=== PATIENT | female | born 1930 | race Caucasian/White ===

== ENCOUNTER → 2017-01-10 | Outpatient (CLI) | payer MEDICARE, BC | LOC: MW.CHFP 08:00 | PROVIDERS: ATTEND Physician Assistant | DX: M17.12 Unilateral primary osteoarthritis, left knee (principal); F41.9 Anxiety disorder, unspecified | CPT/HCPCS: G0463 ==

== ENCOUNTER → 2017-01-13 | Outpatient (CLI) | payer MEDICARE, BC | LOC: MW.CHORTHO 08:00 | PROVIDERS: ATTEND Orthopaedic Surgery | DX: M17.12 Unilateral primary osteoarthritis, left knee (principal) | CPT/HCPCS: 20610; G0463; J1040 ==

== ENCOUNTER → 2017-01-27 | Outpatient (CLI) | payer MEDICARE, BC | LOC: MW.CHFP 08:00 | PROVIDERS: ATTEND Student in an Organized Health Care Education/Training Program | DX: Z51.81 Encounter for therapeutic drug level monitoring (principal); Z79.01 Long term (current) use of anticoagulants; I48.91 Unspecified atrial fibrillation | CPT/HCPCS: 85610; 99211 ==

== ENCOUNTER → 2017-01-28 | Outpatient (CLI) | payer MEDICARE, BC ==
--- NOTE | 2017-01-28 17:04 | CR ---
EXAMINATION: Thoracic spine HISTORY: Pain COMPARISON: None TECHNIQUE: AP and lateral views FINDINGS: There is mild dextrocurvature of the thoracic spine. There are a few mild wedge deformitie s near the thoracolumbar junction. The remaining Vertebral body heights appear grossly maintained. T here is generalized osteopenia. Aortic calcifications are noted. There is a moderate hiatal hernia. IMPRESSION: 1. Osteopenia and mild to moderate exit curvature of the thoracic spine. 2. Mild wedge deformities within the thoracolumbar region.
== END ==
LOC: MW.CHFP 15:56
PROVIDERS: ATTEND Physician Assistant
DX: M54.6 Pain in thoracic spine (principal); R53.83 Other fatigue; M85.88 Other specified disorders of bone density and structure, other site; M43.8X5 Other specified deforming dorsopathies, thoracolumbar region
CPT/HCPCS: 72070; 72070-26; 81001; 87086; G0463

== ENCOUNTER → 2017-02-24 | Outpatient (CLI) | payer MEDICARE, BC | LOC: MW.CHORTHO 08:00 | PROVIDERS: ATTEND Orthopaedic Surgery | DX: M17.12 Unilateral primary osteoarthritis, left knee (principal); Z51.81 Encounter for therapeutic drug level monitoring; Z79.01 Long term (current) use of anticoagulants; I48.91 Unspecified atrial fibrillation | CPT/HCPCS: 20610; 85610; 99211; G0463; J7326 ==

== ENCOUNTER 2018-01-09 21:41 | Emergency (ER) | payer MEDICARE, BC ==
[2018-01-09] MEDS ORDERED: Bacitracin Oint 1 GM U/D Packet TOP ONE (22:08)
--- NOTE | 2018-01-09 22:13 | EDM.PDOC ---
ED HPI GENERAL MEDICAL PROBLEM - General Chief Complaint: Skin Complaint Stated Complaint: PT HURT RT ARM Time Seen by Provider: 01/09/18 22:01 - History of Present Illness INITIAL COMMENTS - FREE TEXT/NARRATIVE: HISTORY AND PHYSICAL: History of present illness: The patient is a 87-year-old female who has a history of atrial fibrillation and is on Coumadin which she gets checked on a regular basis with Dr. Almanzar and presents after scraping her right forearm on a shelf earlier this evening. The patient did not fall to the ground or have a direct blow but says that every time she even has a minor injury because of the Coumadin she bruises easily. The patient had a normal day and has no systemic complaints of fever chills cough chest pain palpitations abdominal pain vomiting or diarrhea. The patient has been doing her normal activity and in fact spent the day with her at [facility]. Patient says she is up-to-date on her tetanus shot and thinks it was 3 years ago and is here for wound care and evaluation. She says that it did not bleed very much from the wound but because of the size that she was concerned. The patient has no bony pain in her forearm and distally has no neurosensory changes or weakness in her hand or arm. The patient currently denies any head neck back chest or other extremity pain. The patient says she did not fall to the ground or hit her head. Review of systems: As per history of present illness and below otherwise all systems reviewed and negative. Past medical history: As per history of present illness and as reviewed below otherwise noncontributory. Surgical history: As per history of present illness and as reviewed below otherwise noncontributory. Social history: No reported history of drug or alcohol abuse. Family history: As per history of present illness and as reviewed below otherwise noncontributory. Physical exam: General: Well-developed thin female who is nontoxic and moves easily in the ED and is in no distress. Vital signs are noted by me HEENT: Atraumatic, normocephalic, pupils reactive, negative for conjunctival pallor or scleral icterus, mucous membranes moist, throat clear, neck supple, nontender, trachea midline. Lungs: Clear to auscultation, breath sounds equal bilaterally, chest nontender. Heart: S1S2, regular rate but irregular rhythm consistent with her atrial fibrillation, there is a systolic ejection murmur heard at the left sternal border Abdomen: Soft, nondistended, nontender. Rotund abdomen, normoactive bowel sounds Pelvis: Stable nontender. Genitourinary: Deferred. Rectal: Deferred. Extremities: Atraumatic with full range of motion of all extremities with the exception of the dorsal aspect of the right forearm where there is a large arrow shaped skin tear measuring approximately 12 x 3 cm and soft tissue ecchymosis in the surround. The compartment is soft and there is no bony tenderness in the forearm elbow or distally in the wrist or hand. There is several superficial scratches with some ecchymosis seen on the dorsal aspect of the hand which are not bleeding. There is no active bleeding from any of these wounds. The legs are, negative for cords or calf pain. Neurovascular unremarkable. Neuro: Awake, alert, oriented. Cranial nerves II through XII unremarkable. Cerebellum unremarkable. Motor and sensory unremarkable throughout. Exam nonfocal. Diagnostics: [] Therapeutics: Irrigation of wound and gentle reapproximation of skin tear, bacitracin and nonstick dressing I discussed with the patient that the wound did not need to be sutured and as it is a flap-like skin tear we would irrigate and then just try to gently slide the superficial skin in a more anatomically correct location but we would not be lifting a flap as this may cause more bleeding. The patient is comfortable with the care plan. The patient tells me that she has a lab draw scheduled for the end of January for her INR and does not request that I check it today. She has no evidence of any active bleeding I will also defer this at this time. Impression: Large skin tear to right forearm stable, history of A. fib and Coumadin use stable Definitive disposition and diagnosis as appropriate pending reevaluation and review of above. 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 ED EXAM, SKIN/RASH Exam: See Below (See dictation) Course - Vital Signs Last Recorded V/S: Last Vital Signs Temp 36.2 C 01/09/18 21:41 Pulse 95 01/09/18 21:41 Resp 18 01/09/18 21:41 BP 146/98 H 01/09/18 21:41 Pulse Ox 93 L 01/09/18 21:41 - Orders/Labs/Meds Orders: Active Orders 24 hr Category Date Time Status Communication Order [RC] STAT Care 01/09/18 22:07 Ordered Bacitracin [Bacitracin Oint 1 GM] Med 01/09/18 22:08 Once 1 dose TOP ONETIME ONE Departure - Departure Time of Disposition: 22:12 Disposition: Home, Self-Care 01 Condition: Good Clinical Impression: Skin tear of forearm without complication Qualifiers: Encounter type: initial encounter Laterality: right Qualified Code(s): S51.811A - Laceration without foreign body of right forearm, initial encounter - Discharge Information Referrals: PCP,None [Primary Care Provider] - Additional Instructions: The following information is given to patients seen in the emergency department who are being discharged to home. This information is to outline your options for follow-up care. We provide all patients seen in our emergency department with a follow-up referral. The need for follow-up, as well as the timing and circumstances, are variable depending upon the specifics of your emergency department visit. If you don't have a primary care physician on staff, we will provide you with a referral. We always advise you to contact your personal physician following an emergency department visit to inform them of the circumstance of the visit and for follow-up with them and/or the need for any referrals to a consulting specialist. The emergency department will also refer you to a specialist when appropriate. This referral assures that you have the opportunity for followup care with a specialist. All of these measure are taken in an effort to provide you with optimal care, which includes your followup. Under all circumstances we always encourage you to contact your private physician who remains a resource for coordinating your care. When calling for followup care, please make the office aware that this follow-up is from your recent emergency room visit. If for any reason you are refused follow-up, please contact the [facility] emergency department at and ask to speak to the emergency department charge nurse. [facility] Primary care- [place] [address] Please keep the wound clean and dry using mild soap and water patting dry and applying bacitracin or Neosporin. If you need to cover the area please do not use a Band-Aid as this will trap moisture and break the skin down further. Use only a nonstick dressing. Please follow-up with your provider in the clinic in the next few days for reevaluation and further care and return to ER as needed and as discussed - My Orders Last 24 Hours: My Active Orders 01/09/18 22:07 Communication Order [RC] STAT 01/09/18 22:08 Bacitracin [Bacitracin Oint 1 GM] 1 dose TOP ONETIME ONE - Assessment/Plan Last 24 Hours: My Active Orders 01/09/18 22:07 Communication Order [RC] STAT 01/09/18 22:08 Bacitracin [Bacitracin Oint 1 GM] 1 dose TOP ONETIME ONE
[2018-01-09 22:40] VITALS: BP 156/92
== END 2018-01-09 22:33 | disposition home or self-care (01) ==
LOC: MW.ED 21:41
DX: S51.811A Laceration without foreign body of right forearm, initial encounter (principal); S60.511A Abrasion of right hand, initial encounter; I48.91 Unspecified atrial fibrillation; I10 Essential (primary) hypertension; Z79.01 Long term (current) use of anticoagulants; Z79.899 Other long term (current) drug therapy; W18.40XA Slipping, tripping and stumbling without falling, unspecified, initial encounter
CPT/HCPCS: 99282; 99283

== ENCOUNTER 2018-02-15 09:58 | Emergency (ER) | payer MEDICARE, BC ==
[2018-02-15 10:08] VITALS: BP 134/42
--- NOTE | 2018-02-15 10:20 | EDM.PDOC ---
ED HPI GENERAL MEDICAL PROBLEM - General Chief Complaint: General Stated Complaint: PT FELL OUT OF BED Time Seen by Provider: 02/15/18 10:19 Source of Information: Reports: Patient, Family History Limitations: Reports: No Limitations - History of Present Illness INITIAL COMMENTS - FREE TEXT/NARRATIVE: HISTORY AND PHYSICAL: [] 87-year-old female presenting by private vehicle family brought her to the emergency room after she fell in her assisted living History of Present Illness: [Patient has history of sleep apnea does not use her CPAP machine] Patient has long history of not sleeping well approximated insomnia she does take a Xanax at night and then supplements with Tylenol PM, he then gets up and is very sleepy and falls . She hit her head on the nightstand. Her knee hit the floor and left upper arm has some ecchymosis. This is complicated with her use of Coumadin for atrial fibrillation. She is on lisinopril for hypertension Review of Systems: As per history of present illness and below otherwise all systems reviewed and negative. Past medical history: As per history of present illness and as reviewed below otherwise noncontributory. Surgical history: As per history of present illness and as reviewed below otherwise noncontributory. Social history: No reported history of drug or alcohol abuse. Family history: As per history of present illness and as reviewed below otherwise noncontributory. Physical exam: Drowsy female answering questions appropriately in her eyes when you ask her to. Answering questions in full sentences without any shortness of breath. HEENT: traumatic ecchymosis noted to the left scalp and mild abrasion. Ecchymosis to the forehead .PERRLA, normocehpalic, pupils reactive, negative for conjunctival pallor or scleral icterus, mucous membranes moist, throat clear , neck supple, nontender, trachea midline. Ecchymosis to the left pinna. And it is in place, no anand bleeding at this time Lungs: Clear to auscultation, breath sounds equal bilaterally, chest non tender. Heart: S1S2, regular, negative for clicks, rubs, or JVD. Abdomen: Soft, nondistended, nontender. Negative for masses or hepatossplenmegaly. Negative for costovertebral tenderness. Pelvis: Stable nontender. Genitourinary: Deferred. Rectal: Deferred Extremities: Atraumatic, negative for cords or calf pain. Pain with lifting her left knee and flexing. Radial pulses are intact, pedal pulses are intact Neurovascular unremarkable. Neuro: Awake, alert, oriented. Cranial nerves II through XII unremarkable. Cerebellum unremarkable. Motor and sensory unremarkable throughout. Exam nonfocal. Discussed with the patient and her family my concerns on her safety with taking her medications that she took the Xanax and Tylenol PM in order to sleep and then was drowsy. This likely resulted in her fall. With request a follow-up with Dr. Trotter for the hematoma to her left pinna. Requesting consideration of a follow-up with Dr. Almanzar regarding patient's safety. Family is concerned that she doesn't eat on the weekends when someone doesn't bring her food and perhaps for saftey reasons and daily cares higher placement may be considered. Diagnostics: []Head CT without contrast Left Shoulder Left knee Therapeutics: [] Impression: []Multiple contusions Plan: []Discharge home Avoid taking Xanax and Tylenol PM together Follow-up for reevaluation by Dr. Almanzar next week Definitive disposition and diagnosis as appropriate pending reevaluation and review of above. Onset: Today, Sudden Duration: Minutes: Location: Reports: Head, Upper Extremity, Left Quality: Reports: Ache Severity: Mild left shoulder, head, ear, left hip Pain Score (Numeric/FACES): 3 - Related Data Allergies Allergy/AdvReac Type Severity Reaction Status Date / Time No Known Allergies Allergy Verified 02/15/18 10:06 Home Meds: Home Meds ALPRAZolam [Xanax XR] 0.5 mg PO BEDTIME 01/09/18 [History] Aspirin 81 mg PO DAILY 01/09/18 [History] Lisinopril 10 mg PO DAILY 01/09/18 [History] Multivitamin [Multivitamins] 1 tab PO DAILY 01/09/18 [History] Warfarin [Coumadin] 0.5 tab PO DAILY 01/09/18 [History] Warfarin [Coumadin] 2.5 mg PO DAILY 01/09/18 [History] traMADol [Ultram] 1 tab PO Q6H PRN 01/09/18 [History] Mirtazapine 15 mg PO BEDTIME 02/15/18 [History] Past Medical History HEENT History: Reports: Impaired Vision, Other (See Below) Other HEENT History: Wears glasses Cardiovascular History: Reports: Afib, Hypertension Genitourinary History: Reports: Urinary Incontinence 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: Musculoskeletal History: Reports: Arthritis Psychiatric History: Reports: Anxiety, Depression - Infectious Disease History Infectious Disease History: Reports: Measles, Mumps - Past Surgical History GI Surgical History: Reports: Appendectomy, Cholecystectomy Musculoskeletal Surgical History: Reports: Knee Replacement, Other (See Below) Other Musculoskeletal Surgeries/Procedures:: Humerus screw Social & Family History - Family History Family Medical History: Noncontributory - Tobacco Use Smoking Status *Q: Never Smoker - Caffeine Use Caffeine Use: Reports: Coffee ED ROS GENERAL - Review of Systems Review Of Systems: ROS reveals no pertinent complaints other than HPI. ED EXAM, GENERAL - Physical Exam Exam: See Below (See dictation) EKG INTERPRETATION EKG Date: 02/15/18 Time: 11:10 Rhythm: NSR Rate (Beats/Min): 78 Comparison: Change From Previous EKG EKG Interpretation Comments: Bigeminy ventricular Course - Vital Signs Last Recorded V/S: Last Vital Signs Temp 36.1 C 02/15/18 10:04 Pulse 87 02/15/18 10:04 Resp 18 02/15/18 10:04 BP 134/42 L 02/15/18 10:04 Pulse Ox 94 L 02/15/18 10:04 - Orders/Labs/Meds Orders: Active Orders 24 hr Category Date Time Status EKG Documentation Completion [RC] STAT Care 02/15/18 10:26 Active CULTURE URINE [RM] Stat Lab 02/15/18 10:05 Ordered UA W/MICROSCOPIC [URIN] Stat Lab 02/15/18 10:05 Ordered Labs: Laboratory Tests 02/15/18 Range/Units 10:05 Urine Color YELLOW Urine Appearance SLT CLOUDY Urine pH 5.5 (5.0-8.0) Ur Specific [place] 1.015 (1.001-1.035) Urine Protein NEGATIVE (NEGATIVE) mg/dL Urine Glucose (UA) NEGATIVE (NEGATIVE) mg/dL Urine Ketones NEGATIVE (NEGATIVE) mg/dL Urine Occult Blood SMALL H (NEGATIVE) Urine Nitrite NEGATIVE (NEGATIVE) Urine Bilirubin NEGATIVE (NEGATIVE) Urine Urobilinogen 0.2 (<2.0) EU/dL Ur Leukocyte Esterase TRACE (NEGATIVE) Urine RBC 0-1 (0-2/HPF) Urine WBC 0-2 (0-5/HPF) Ur Epithelial Cells MODERATE (NONE-FEW) Amorphous Sediment RARE (NEGATIVE) Urine Bacteria RARE (NEGATIVE) Departure - Departure Time of Disposition: 11:36 Disposition: Home, Self-Care 01 Condition: Good Clinical Impression: Multiple contusions - Discharge Information Referrals: Sadi Almanzar MD [Primary Care Provider] - Layla Trotter MD [Physician] - Forms: ED Department Discharge Additional Instructions: The following information is given to patients seen in the emergency department who are being discharged to home. This information is to outline your options for follow-up care. We provide all patients seen in our emergency department with a follow-up referral. The need for follow-up, as well as the timing and circumstances, are variable depending upon the specifics of your emergency department visit. If you don't have a primary care physician on staff, we will provide you with a referral. We always advise you to contact your personal physician following an emergency department visit to inform them of the circumstance of the visit and for follow-up with them and/or the need for any referrals to a consulting specialist. The emergency department will also refer you to a specialist when appropriate. This referral assures that you have the opportunity for followup care with a specialist. All of these measure are taken in an effort to provide you with optimal care, which includes your followup. Under all circumstances we always encourage you to contact your private physician who remains a resource for coordinating your care. When calling for followup care, please make the office aware that this follow-up is from your recent emergency room visit. If for any reason you are refused follow-up, please contact the [facility] emergency department at and asked to speak to the emergency department charge nurse. Follow-up with Dr. Almanzar in 1 week Consider the referral to Dr. Layla Trotter, ENT specialist Avoid taking Xanax and Tylenol PM together Return to the emergency room should he have further concerns as directed and discussed - My Orders Last 24 Hours: My Active Orders 02/15/18 10:05 CULTURE URINE [RM] Stat UA W/MICROSCOPIC [URIN] Stat 02/15/18 10:26 EKG Documentation Completion [RC] STAT - Assessment/Plan Last 24 Hours: My Active Orders 02/15/18 10:05 CULTURE URINE [RM] Stat UA W/MICROSCOPIC [URIN] Stat 02/15/18 10:26 EKG Documentation Completion [RC] STAT
--- NOTE | 2018-02-15 10:57 | CR ---
EXAMINATION: Left knee HISTORY: Pain COMPARISON: 02/01/2018 TECHNIQUE: 3 views FINDINGS: There is severe joint space narrowing within the lateral compartment. There is a small join t effusion. No fracture or acute osseous body. Bone mineralization is normal. Osteophyte formation is noted. IMPRESSION: 1. Advanced degenerative changes and small joint effusion without acute osseous abnormalities noted.
--- NOTE | 2018-02-15 10:58 | CR ---
EXAMINATION: Left shoulder HISTORY: Pain COMPARISON: None TECHNIQUE: 3 views FINDINGS: There is screw and plate fixation of the left humerus proximally. Mild widening of the acro mioclavicular joint is noted. Osseous structures are osteopenic. No fracture or acute osseous abnorma lity. Glenohumeral joint space is grossly preserved with mild osteophyte formation. IMPRESSION: 1. Degenerative and postoperative changes without an acute osseous abnormality noted.
--- NOTE | 2018-02-15 11:16 | CT ---
EXAMINATION: Non contrast CT head. Coronal and sagittal reformats. HISTORY: Pain FINDINGS: No evidence of intra or extra axial hemorrhage, mass, midline shift, hydrocephalus or edema. Mild ge neralized atrophy and moderate periventricular and subcortical white matter hypodensities noted. No hypoattenuation changes in the major vascular territories to suggest acute infarct. No abnormal intracranial calcifications are detected. No evidence of substantial vascular calcificat ions. Paranasal sinuses and mastoid air cells are well aerated without substantial findings. Pituitary fossa appears unremarkable. Calvarium is intact. No evidence of skull fracture. Small subcutaneous hematoma within the left tempo ral region. Orbits and globes are symmetric. IMPRESSION: 1. No acute intracranial findings. 2. Moderate small vessel ischemic changes. 3. Left temporal subcutaneous hematoma.
[2018-02-15] MEDS ORDERED: Octyl 2-Cyanoacrylate 1 APPLIC TUBE TOP ONE (12:01)
== END 2018-02-15 12:19 | disposition home or self-care (01) ==
LOC: MW.ED 09:58
DX: S00.03XA Contusion of scalp, initial encounter (principal); S00.83XA Contusion of other part of head, initial encounter; S40.022A Contusion of left upper arm, initial encounter; S00.432A Contusion of left ear, initial encounter; I10 Essential (primary) hypertension; I48.91 Unspecified atrial fibrillation; F41.9 Anxiety disorder, unspecified; F32.9 Major depressive disorder, single episode, unspecified; Z79.82 Long term (current) use of aspirin; Z79.01 Long term (current) use of anticoagulants; Z79.899 Other long term (current) drug therapy; W22.8XXA Striking against or struck by other objects, initial encounter
CPT/HCPCS: 70450; 73030; 73562; 81001; 87086; 93005; 99284; A9270

== ENCOUNTER 2019-03-19 12:02 | Observation (INO) | payer MEDICARE, BC ==
--- NOTE | 2019-03-19 12:26 | EDM.PDOC ---
ED HPI GENERAL MEDICAL PROBLEM - General Chief Complaint: Lower Extremity Injury/Pain Stated Complaint: FELL Time Seen by Provider: 03/19/19 12:04 Source of Information: Reports: Patient History Limitations: Reports: No Limitations - History of Present Illness INITIAL COMMENTS - FREE TEXT/NARRATIVE: HISTORY AND PHYSICAL: Trauma Alert was called on this patient due to fall and being on Warfarin. Dr Chappell was involved in this case. History of present illness: Patient is an 88-year-old female who presents to the emergency room complaining of left hip pain and fatigue. Patient states that she had an unwitnessed fall trying to get out of bed. Stating "I slipped out of bed" and landed on her buttocks/left hip. She denies hitting her head or having any loss of consciousness. She states she did spend some time on the floor, although is nonspecific about how long. She states she was able to get up and ambulate after the fall. Family at bedside reports that she was on the ground when they came to check on her this morning. Patient reports has been having fatigue and just feeling generally "unwell" for several weeks. Recently she was seen by Dr. Almanzar for her frequent falls. He performed x-ray's which was benign and ordered a Zio patch. Zio patched was on placed 03/16/2019 - due to her frequent falls, concerned she's having syncopal events. Recently had been taken off her antihypertensive medications as they were concerned she was becoming hypotensive related to her syncopal event/falls. Patient denies any fever, chills, headache, change in vision, syncope or near syncope. Denies any chest pain, shortness of breath or cough. Denies any abdominal pain, nausea, vomiting, diarrhea, constipation or dysuria. Has not noted any blood in urine or stool. Patient has been eating and drinking appropriately. Review of systems: As per history of present illness and below otherwise all systems reviewed and negative. Past medical history: As per history of present illness and as reviewed below otherwise noncontributory. Surgical history: As per history of present illness and as reviewed below otherwise noncontributory. Social history: See social history for further information Family history: As per history of present illness and as reviewed below otherwise noncontributory. Physical exam: General: Well-developed and well-nourished 88-year-old female. Alert and appropriate for age. Nontoxic appearing and in no acute distress. HEENT: Nontender with palpation, no obvious bruising or soft tissue swelling noted, normocephalic, pupils equal and reactive bilaterally, negative for conjunctival pallor or scleral icterus, mucous membranes moist, TMs normal bilaterally, throat clear, neck supple, nontender, trachea midline. No drooling or trismus noted. No meningeal signs. No hot potato voice noted. Lungs: Clear to auscultation, breath sounds equal bilaterally, chest nontender. She does have a Zio Patch to her left upper chest wall. Heart: S1S2, regular rate and rhythm with murmur noted Abdomen: Soft, nondistended, nontender. Negative for masses or hepatosplenomegaly. Negative for costovertebral tenderness. Pelvis: Stable nontender. Genitourinary: Deferred. Rectal: Deferred. Skin: Intact, warm, dry. No lesions or rashes noted. C-spine/Back: No pinpoint vertebral tenderness upon palpation. No crepitus, step -offs or obvious deformities. Patient reports she was ambulatory at home, this has not been witnessed. She denies any numbness, tingling or saddle paresthesia. She is able to lift her great toe up to her nose with good strength bilaterally. Extremities: Moves all extremities per self without difficulty or deficits. Neurovascular unremarkable. Neuro: Awake, alert, oriented. Cranial nerves II through XII unremarkable. Cerebellum unremarkable. Motor and sensory unremarkable throughout. Exam nonfocal. Notes: GCS 15, NIH 0. Patient is alert and answers questions semi appropriately. She does appear to be somewhat confused as her answers change as far as obtaining a history of what happened related to her fall. Initially she states she had a syncopal event and that the only thing bothering the is her neck. Later she told nursing staff that she slide out of bed and her lumbar back, left hip and left knee were painful. Family and bedside state that she has been having more frequent falls. They are interested in putting her in a assisted living nursing facility as they're concerned she is falling and not taking her medications as prescribed. Head CT shows no acute intracranial findings. Mild generalized atrophy and moderate small vessel ischemic changes. Otherwise imaging is unremarkable. No acute findings on lab work. Urine was just sent for evaluation. Patient and family are not comfortable being discharged today. Dr. Shin, hospitalist, was consulted on this case and is agreeable to keeping patient for observation admission. Diagnostics: CBC, CMP, troponin, INR, head CT, chest x-ray, left hip/pelvis, left knee Therapeutics: Saline lock Impression: Falls Syncope Plan: Observation admission to [facility] with telemetry. Definitive disposition and diagnosis as appropriate pending reevaluation and review of above. Left hip Pain Score (Numeric/FACES): 5 - Related Data Allergies Allergy/AdvReac Type Severity Reaction Status Date / Time No Known Allergies Allergy Verified 03/19/19 12:04 Home Meds: Home Meds ALPRAZolam [Xanax XR] 0.5 mg PO BEDTIME 01/09/18 [History] Aspirin 81 mg PO DAILY 01/09/18 [History] Multivitamin [Multivitamins] 1 tab PO DAILY 01/09/18 [History] Warfarin [Coumadin] 0.5 tab PO DAILY 01/09/18 [History] Warfarin [Coumadin] 2.5 mg PO DAILY 01/09/18 [History] traMADol [Ultram] 1 tab PO Q6H PRN 01/09/18 [History] Mirtazapine 15 mg PO BEDTIME 02/15/18 [History] Past Medical History HEENT History: Reports: Impaired Vision, Other (See Below) Other HEENT History: Wears glasses Cardiovascular History: Reports: Afib, Hypertension Respiratory History: Reports: None Gastrointestinal History: Reports: None Genitourinary History: Reports: Urinary Incontinence CARPENTRY SPECIALIST History: Reports: Musculoskeletal History: Reports: Arthritis Neurological History: Reports: None Psychiatric History: Reports: Anxiety, Depression Endocrine/Metabolic History: Reports: None Hematologic History: Reports: None Immunologic History: Reports: None Oncologic (Cancer) History: Reports: None Dermatologic History: Reports: None - Infectious Disease History Infectious Disease History: Reports: Measles - Past Surgical History Head Surgeries/Procedures: Reports: None HEENT Surgical History: Reports: None Cardiovascular Surgical History: Reports: None Respiratory Surgical History: Reports: None GI Surgical History: Reports: Appendectomy, Cholecystectomy Female Surgical History: Reports: None Endocrine Surgical History: Reports: None Neurological Surgical History: Reports: None Musculoskeletal Surgical History: Reports: Knee Replacement, Other (See Below) Other Musculoskeletal Surgeries/Procedures:: Humerus screw Oncologic Surgical History: Reports: None Dermatological Surgical History: Reports: None Social & Family History - Family History Family Medical History: Noncontributory - Tobacco Use Smoking Status *Q: Never Smoker Second Hand Smoke Exposure: No - Caffeine Use Caffeine Use: Reports: Coffee - Recreational Drug Use Recreational Drug Use: No Review of Systems - Review of Systems Review Of Systems: ROS reveals no pertinent complaints other than HPI. ED EXAM, GENERAL - Physical Exam Exam: See Below (See dictation) Course - Vital Signs Last Recorded V/S: Last Vital Signs Temp 97.2 F 03/19/19 12:04 Pulse 86 03/19/19 12:04 Resp 18 03/19/19 12:04 BP 107/57 L 03/19/19 12:04 Pulse Ox 96 03/19/19 12:04 - Orders/Labs/Meds Orders: Active Orders 24 hr Category Date Time Status Admission Status [Patient Status] [ADT] Stat ADT 03/19/19 13:50 Ordered EKG Documentation Completion [RC] STAT Care 03/19/19 12:08 Active UA RFX MIRNA AND CULT IF INDIC [URIN] Stat Lab 03/19/19 12:07 Ordered Labs: Laboratory Tests 03/19/19 03/19/19 03/19/19 Range/Units 12:17 12:17 12:17 WBC 8.33 (4.0-11.0) K/uL RBC 4.26 L (4.30-5.90) M/uL Hgb 12.1 (12.0-16.0) g/dL Hct 39.7 (36.0-46.0) % MCV 93.2 (80.0-98.0) fL MCH 28.4 (27.0-32.0) pg MCHC 30.5 L (31.0-37.0) g/dL RDW Std Deviation 55.4 (28.0-62.0) fl RDW Coeff of Caridad 16 H (11.0-15.0) % Plt Count 292 (150-400) K/uL MPV 10.50 (7.40-12.00) fL Neut % (Auto) 74.0 (48.0-80.0) % Lymph % (Auto) 15.8 L (16.0-40.0) % [place] % (Auto) 9.4 (0.0-15.0) % Eos % (Auto) 0.7 (0.0-7.0) % Baso % (Auto) 0.1 (0.0-1.5) % Neut # (Auto) 6.2 H (1.4-5.7) K/uL Lymph # (Auto) 1.3 (0.6-2.4) K/uL [place] # (Auto) 0.8 (0.0-0.8) K/uL Eos # (Auto) 0.1 (0.0-0.7) K/uL Baso # (Auto) 0.0 (0.0-0.1) K/uL Nucleated RBC % 0.0 /100WBC Nucleated RBCs # 0 K/uL INR 2.57 Sodium 142 (136-145) mmol/L Potassium 3.8 (3.5-5.1) mmol/L Chloride 106 (98-107) mmol/L Carbon Dioxide 29.0 (21.0-32.0) mmol/L BUN 10 (7.0-18.0) mg/dL Creatinine 0.6 (0.6-1.0) mg/dL Est Cr Clr Drug Dosing 45.66 mL/min Estimated GFR (MDRD) > 60.0 ml/min Glucose 145 H (74-106) mg/dL Calcium 8.5 (8.5-10.1) mg/dL Total Bilirubin 0.3 (0.2-1.0) mg/dL AST 23 (15-37) IU/L ALT 30 (14-63) IU/L Alkaline Phosphatase 170 H (46-116) U/L Creatine Kinase 73 (26-308) U/L Troponin I < 0.050 (0.000-0.056) ng/mL Total Protein 6.4 (6.4-8.2) g/dL Albumin 2.9 L (3.4-5.0) g/dL Globulin 3.5 (2.6-4.0) g/dL Albumin/Globulin Ratio 0.8 L (0.9-1.6) Departure - Departure Time of Disposition: 13:52 Disposition: Refer to Observation Clinical Impression: Syncope Qualifiers: Syncope type: unspecified Qualified Code(s): R55 - Syncope and collapse Falls Qualifiers: Encounter type: initial encounter Qualified Code(s): W19.XXXA - Unspecified fall, initial encounter - Discharge Information Referrals: Sadi Almanzar MD [Primary Care Provider] - Forms: ED Department Discharge - My Orders Last 24 Hours: My Active Orders 03/19/19 12:07 UA RFX MIRNA AND CULT IF INDIC [URIN] Stat 03/19/19 12:08 EKG Documentation Completion [RC] STAT 03/19/19 13:50 Admission Status [Patient Status] [ADT] Stat - Assessment/Plan Last 24 Hours: My Active Orders 03/19/19 12:07 UA RFX MIRNA AND CULT IF INDIC [URIN] Stat 03/19/19 12:08 EKG Documentation Completion [RC] STAT 03/19/19 13:50 Admission Status [Patient Status] [ADT] Stat
--- NOTE | 2019-03-19 12:37 | CR ---
EXAMINATION: Portable chest radiograph. HISTORY: Shortness of breath. Comparison: 11/21/2017, 06/22/2008 FINDINGS: The trachea is midline. The heart is borderline in size for technique. The cardiomediastinal silhouette is within normal limits. Chronic interstitial prominence noted with bibasilar scarring. Moderate hiatal hernia. No pleural effusion or pneumothorax. Likely left-sided quality assurance monitor body. Osseous structures appear unremarkable. IMPRESSION: No definite acute cardiopulmonary process.
--- NOTE | 2019-03-19 12:50 | CR ---
EXAMINATION: Pelvis HISTORY: Pain COMPARISON: 03/08/2019 TECHNIQUE: Single AP view FINDINGS: There is no acute osseous abnormality, dislocation, or fracture. Bone mineralization appears mildly osteopenic. Iliopectineal and ilioischial inguinal lines appear intact. SI joints are symmetric. Bowel gas obscures evaluation of the sacrum. Moderate degenerative changes noted within the lower lumbar spine. Early osteoarthritic changes within the hips bilaterally. IMPRESSION: No definite acute osseous abnormality.
[2019-03-19 13:01] LABS: CHLORIDE,CL 106 mmol/L (98-107); SODIUM,NA 142 mmol/L (136-145)
--- NOTE | 2019-03-19 13:11 | CR ---
EXAMINATION: Left knee HISTORY: Fall COMPARISON: 02/15/2018 TECHNIQUE: 2 views FINDINGS: Advanced joint space narrowing within the lateral compartment with osteophyte formation. There is no definite fracture or acute osseous abnormality. Bone mineralization is osteopenic. Likely minimal suprapatellar joint fluid. IMPRESSION: Osteopenia and advanced degenerative changes without a definite acute osseous abnormality.
--- NOTE | 2019-03-19 13:18 | CT ---
EXAMINATION: Non contrast CT head. Coronal and sagittal reformats. HISTORY: Pain FINDINGS: No evidence of intra or extra axial hemorrhage, mass, midline shift, hydrocephalus or edema. Mild generalized atrophy. [id number]-bu-[id number] periventricular and subcortical white matter hypodensities are noted. 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 No hypoattenuation changes in the major vascular territories to suggest acute infarct. No abnormal intracranial calcifications are detected. Moderate vascular calcifications. Paranasal sinuses and mastoid air cells are well aerated without substantial findings. Pituitary fossa appears unremarkable. Calvarium is intact. No evidence of skull fracture. IMPRESSION: 1. No acute intracranial findings. 2. Mild generalized atrophy and moderate small vessel ischemic changes.
--- NOTE | 2019-03-19 13:29 | CT ---
EXAMINATION: CT cervical spine HISTORY: Pain COMPARISON: None TECHNIQUE: Axial CT imaging obtained through the cervical spine without contrast. Coronal and sagittal reconstructions obtained. FINDINGS: The cervical spinal alignment is normal. Vertebral body heights appear maintained. Disc space narrowing is noted at C5-C6 with uncovertebral hypertrophy. There is no fracture or acute osseous head and body. Bone mineralization is normal. Mild carotid vascular calcifications. Degenerative changes noted within the temporomandibular joints bilaterally. Lung apices are clear. IMPRESSION: 1. No acute cervical spinal abnormality.
--- NOTE | 2019-03-19 13:33 | CT ---
EXAMINATION: CT lumbar spine HISTORY: Pain COMPARISON: None TECHNIQUE: Axial CT imaging obtained through the lumbar spine without contrast. Coronal and sagittal reconstructions obtained. FINDINGS: There is moderate dextrocurvature lumbar spine. There is mild wedge deformity of T11, which appears chronic. There is no acute fracture or osseous abnormality identified. Moderate facet arthritic changes noted throughout the lumbar spine. Bone mineralization is normal to mildly osteopenic. SI joints are symmetric. Diverticulosis. Scarring is noted within the lung bases. Cholecystectomy with prominence of the common bile duct. IMPRESSION: 1. Degenerative changes without an acute osseous abnormality within the lumbar spine.
--- NOTE | 2019-03-19 16:14 | PCM.HP ---
<Sylvain Linton - Last Filed: 03/19/19 16:18> H&P History of Present Illness - General Date of Service: 03/19/19 Admit Problem/Dx: Admission Diagnosis/Problem Admission Diagnosis/Problem Syncope - History of Present Illness Initial Comments - Free Text/Narative: 88 y/o female with history of Afib on warfarin who presented to the ER after falling off the bed last night. Patient states that last night she was getting off the bed, when she slid off and fell on the floor. She had some difficulty standing up and spent the night on the floor. She denies any trauma to her head or bleeding. Denies any lightheadedness, chest pain, dyspnea, abdominal pain, dysuria, diarrhea. She does endorse generalized weakness. States that for the past 1 month she has been feeling weaker. Denies any nausea, vomiting. She lives at [facility]. Family is concerned for her safety and think that she needs usp placement due to her falls. In the ER, CT head, Lumbar were negative for any intracranial hemorrhage or acute fractures. She states she has been getting steroid injections every 3 months in her back, hips and knees. She uses a walker to ambulate. Left hip Pain Score (Numeric/FACES): 4 - Related Data Allergies/Adverse Reactions: Allergies Allergy/AdvReac Type Severity Reaction Status Date / Time No Known Allergies Allergy Verified 03/19/19 12:04 Home Medications: Home Meds Multivitamin [Multivitamins] 1 tab PO DAILY 01/09/18 [History] traMADol [Ultram] 50 mg PO Q6H PRN 01/09/18 [History] Warfarin [Coumadin] 1 mg PO SUTUTHSA@1400 03/19/19 [History] Warfarin [Coumadin] 2 mg PO MOWEFR@1400 03/19/19 [History] ALPRAZolam [Alprazolam] 1 mg PO BEDTIME 03/20/19 [History] Nitrofurantoin Monohyd/M-Cryst [Macrobid 100 mg Capsule] 100 mg PO BID 5 Days # 10 capsule 03/20/19 [Rx] Past Medical History HEENT History: Reports: Impaired Vision, Other (See Below) Other HEENT History: Wears glasses Cardiovascular History: Reports: Afib, Hypertension Respiratory History: Reports: Sleep Apnea Gastrointestinal History: Reports: None Genitourinary History: Reports: Urinary Incontinence PHARM SPEC History: Reports: Musculoskeletal History: Reports: Arthritis, Fracture Neurological History: Reports: None Psychiatric History: Reports: Anxiety, Depression Endocrine/Metabolic History: Reports: None Hematologic History: Reports: None Immunologic History: Reports: None Oncologic (Cancer) History: Reports: Basal Cell Carcinoma, Squamous Cell Carcinoma Other Oncologic History: left side of head and right forearm Dermatologic History: Reports: Other (See Below) - Infectious Disease History Infectious Disease History: Reports: Chicken Pox, Measles, Shingles - Past Surgical History Head Surgeries/Procedures: Reports: None HEENT Surgical History: Reports: Cataract Surgery Cardiovascular Surgical History: Reports: None Respiratory Surgical History: Reports: None Other Respiratory Surgeries/Procedures: does not use cpap GI Surgical History: Reports: Appendectomy, Cholecystectomy Female Surgical History: Reports: None Endocrine Surgical History: Reports: None Neurological Surgical History: Reports: None Musculoskeletal Surgical History: Reports: Knee Replacement, Other (See Below) Other Musculoskeletal Surgeries/Procedures:: Humerus screw Oncologic Surgical History: Reports: None Dermatological Surgical History: Reports: None Social & Family History - Family History Family Medical History: Noncontributory - Tobacco Use Smoking Status *Q: Never Smoker Second Hand Smoke Exposure: No - Caffeine Use Caffeine Use: Reports: Coffee - Recreational Drug Use Recreational Drug Use: No H&P Review of Systems - Review of Systems: Review Of Systems: ROS reveals no pertinent complaints other than HPI. Exam - Exam Exam: See Below - Vital Signs Vital Signs: Last Vital Signs Temp 36.6 C 03/19/19 14:14 Pulse 74 03/19/19 14:14 Resp 18 03/19/19 14:14 BP 146/69 H 03/19/19 14:14 Pulse Ox 95 03/19/19 14:14 Weight: 56.291 kg - Exam General: Alert, Oriented, Cooperative HEENT: Conjunctiva Clear, Mucosa Moist & [place] Lungs: Clear to Auscultation, Normal Respiratory Effort Cardiovascular: Regular Rate, Regular Rhythm, Systolic Murmur GI/Abdominal Exam: Normal Bowel Sounds, Soft, Non-Tender Extremities: Normal Inspection, No Pedal Edema Skin: Warm, Dry, Ecchymosis - Patient Data Lab Results Last 24 hrs: Laboratory Results - last 24 hr 03/19/19 03/19/19 03/19/19 Range/Units 12:17 12:17 12:17 WBC 8.33 (4.0-11.0) K/uL RBC 4.26 L (4.30-5.90) M/uL Hgb 12.1 (12.0-16.0) g/dL Hct 39.7 (36.0-46.0) % MCV 93.2 (80.0-98.0) fL MCH 28.4 (27.0-32.0) pg MCHC 30.5 L (31.0-37.0) g/dL RDW Std Deviation 55.4 (28.0-62.0) fl RDW Coeff of Caridad 16 H (11.0-15.0) % Plt Count 292 (150-400) K/uL MPV 10.50 (7.40-12.00) fL Neut % (Auto) 74.0 (48.0-80.0) % Lymph % (Auto) 15.8 L (16.0-40.0) % [place] % (Auto) 9.4 (0.0-15.0) % Eos % (Auto) 0.7 (0.0-7.0) % Baso % (Auto) 0.1 (0.0-1.5) % Neut # (Auto) 6.2 H (1.4-5.7) K/uL Lymph # (Auto) 1.3 (0.6-2.4) K/uL [place] # (Auto) 0.8 (0.0-0.8) K/uL Eos # (Auto) 0.1 (0.0-0.7) K/uL Baso # (Auto) 0.0 (0.0-0.1) K/uL Nucleated RBC % 0.0 /100WBC Nucleated RBCs # 0 K/uL INR 2.57 Sodium 142 (136-145) mmol/L Potassium 3.8 (3.5-5.1) mmol/L Chloride 106 (98-107) mmol/L Carbon Dioxide 29.0 (21.0-32.0) mmol/L BUN 10 (7.0-18.0) mg/dL Creatinine 0.6 (0.6-1.0) mg/dL Est Cr Clr Drug Dosing 45.66 mL/min Estimated GFR (MDRD) > 60.0 ml/min Glucose 145 H (74-106) mg/dL Calcium 8.5 (8.5-10.1) mg/dL Total Bilirubin 0.3 (0.2-1.0) mg/dL AST 23 (15-37) IU/L ALT 30 (14-63) IU/L Alkaline Phosphatase 170 H (46-116) U/L Creatine Kinase 73 (26-308) U/L Troponin I < 0.050 (0.000-0.056) ng/mL Total Protein 6.4 (6.4-8.2) g/dL Albumin 2.9 L (3.4-5.0) g/dL Globulin 3.5 (2.6-4.0) g/dL Albumin/Globulin Ratio 0.8 L (0.9-1.6) Urine Color Urine Appearance Urine pH (5.0-8.0) Ur Specific [place] (1.001-1.035) Urine Protein (NEGATIVE) mg/dL Urine Glucose (UA) (NEGATIVE) mg/dL Urine Ketones (NEGATIVE) mg/dL Urine Occult Blood (NEGATIVE) Urine Nitrite (NEGATIVE) Urine Bilirubin (NEGATIVE) Urine Urobilinogen (<2.0) EU/dL Ur Leukocyte Esterase (NEGATIVE) Urine RBC (0-2/HPF) Urine WBC (0-5/HPF) Ur Epithelial Cells (NONE-FEW) Urine Bacteria (NEGATIVE) 03/19/19 Range/Units 13:36 WBC (4.0-11.0) K/uL RBC (4.30-5.90) M/uL Hgb (12.0-16.0) g/dL Hct (36.0-46.0) % MCV (80.0-98.0) fL MCH (27.0-32.0) pg MCHC (31.0-37.0) g/dL RDW Std Deviation (28.0-62.0) fl RDW Coeff of Caridad (11.0-15.0) % Plt Count (150-400) K/uL MPV (7.40-12.00) fL Neut % (Auto) (48.0-80.0) % Lymph % (Auto) (16.0-40.0) % [place] % (Auto) (0.0-15.0) % Eos % (Auto) (0.0-7.0) % Baso % (Auto) (0.0-1.5) % Neut # (Auto) (1.4-5.7) K/uL Lymph # (Auto) (0.6-2.4) K/uL [place] # (Auto) (0.0-0.8) K/uL Eos # (Auto) (0.0-0.7) K/uL Baso # (Auto) (0.0-0.1) K/uL Nucleated RBC % /100WBC Nucleated RBCs # K/uL INR Sodium (136-145) mmol/L Potassium (3.5-5.1) mmol/L Chloride (98-107) mmol/L Carbon Dioxide (21.0-32.0) mmol/L BUN (7.0-18.0) mg/dL Creatinine (0.6-1.0) mg/dL Est Cr Clr Drug Dosing mL/min Estimated GFR (MDRD) ml/min Glucose (74-106) mg/dL Calcium (8.5-10.1) mg/dL Total Bilirubin (0.2-1.0) mg/dL AST (15-37) IU/L ALT (14-63) IU/L Alkaline Phosphatase (46-116) U/L Creatine Kinase (26-308) U/L Troponin I (0.000-0.056) ng/mL Total Protein (6.4-8.2) g/dL Albumin (3.4-5.0) g/dL Globulin (2.6-4.0) g/dL Albumin/Globulin Ratio (0.9-1.6) Urine Color YELLOW Urine Appearance CLEAR Urine pH 6.5 (5.0-8.0) Ur Specific [place] 1.020 (1.001-1.035) Urine Protein NEGATIVE (NEGATIVE) mg/dL Urine Glucose (UA) NEGATIVE (NEGATIVE) mg/dL Urine Ketones NEGATIVE (NEGATIVE) mg/dL Urine Occult Blood NEGATIVE (NEGATIVE) Urine Nitrite NEGATIVE (NEGATIVE) Urine Bilirubin NEGATIVE (NEGATIVE) Urine Urobilinogen 0.2 (<2.0) EU/dL Ur Leukocyte Esterase TRACE H (NEGATIVE) Urine RBC 0-2 (0-2/HPF) Urine WBC 0-2 (0-5/HPF) Ur Epithelial Cells OCCASIONAL (NONE-FEW) Urine Bacteria NOT SEEN (NEGATIVE) Result Diagrams: 03/19/19 12:17 03/19/19 12:17 Problem List Initiated/Reviewed/Updated: Yes Orders Last 24hrs: Active Orders 24 hr Category Date Time Status Admission Status [Patient Status] [ADT] Stat ADT 03/19/19 13:50 Active EKG Documentation Completion [RC] STAT Care 03/19/19 12:08 Active Telemetry Monitoring [Cardiac Monitoring] [RC] Q8H Care 03/19/19 13:55 Active CULTURE URINE [RM] Stat Lab 03/19/19 13:36 Received Assessment/Plan Comment:: A: 1. Ambulatory dysfunction 2. UTI 3. Atrial fibrillation, rate controlled P: 1. Ambulatory dysfunction. Unknown etiology but I suspect that polypharmacy may be contributing to her symptoms, weakness. Will hold beta-blockers and get PT to evaluate her. 2. UTI. will start ceftriaxone, pending culture results. 3. Atrial fibrillation, rate controlled. Will continue warfarin. INR in therapeutic range. dispo: 1-2 days, will need placement to [facility]. <Reggie Shin - Last Filed: 03/21/19 07:50> H&P History of Present Illness - General Admit Problem/Dx: Admission Diagnosis/Problem Admission Diagnosis/Problem Syncope I have seen and examined to patient independently of medical claims analyst, Sylvain Lock MD. I have discussed the case for care of this patient with him. I have reviewed and approve of the plan of care as outlined by medical claims analyst. Please see orders. Exam - Vital Signs Vital Signs: Last Vital Signs Temp 36.3 C 03/20/19 08:00 Pulse 97 03/20/19 08:00 Resp 18 03/20/19 08:00 BP 134/63 03/20/19 08:00 Pulse Ox 94 L 03/20/19 08:00 - Patient Data Result Diagrams: 03/20/19 05:30 03/20/19 05:30 Johnson Results Last 24 hrs: Microbiology 03/19/19 13:36 Urine Culture - Final Urine, Clean Catch MIXED CHRISTINA 10,000-100,000 CFU/ML Orders Last 24hrs: Active Orders 24 hr Category Date Time Status Ready for Discharge [RC] PER UNIT ROUTINE Care 03/20/19 09:36 Active
[2019-03-19] MEDS ORDERED: Ondansetron 4 MG Tab.DIS PO PRN (16:20)
[2019-03-19] MEDS ORDERED: cefTRIAXone 2 GM in Premix Bag 1 BAG IV SCH (16:30)
[2019-03-19] MEDS ORDERED: Warfarin 2 MG Tab PO ONE (18:00)
[2019-03-19] MEDS: Acetaminophen 325 MG Tab PO PRN (22:08)
[2019-03-20 06:12] LABS: CHLORIDE,CL 107 mmol/L (98-107); SODIUM,NA 144 mmol/L (136-145)
[2019-03-20 08:28] VITALS: BP 134/63
--- NOTE | 2019-03-20 09:36 | PCM.DCSUM1 ---
<Sylvain Linton - Last Filed: 03/20/19 10:18> Discharge Summary - Hospital Course Free Text/Narrative:: 88 y/o female with history of Afib on coumadin who was admitted for ambulatory dysfunction s/p a fall. She was found to have a UTI for which she was treated with Ceftriaxone. She did relatively well during this hospitalization. She stated she was back to baseline. Physical therapy worked with her and she was noted to be able to ambulate with a walker and had good strength. She was discharged home on Macrobid 100 mg PO BID for 5 days for her UTI. She will need Home Health for PT/OT due to her recent falls at home and since she uses a walker. Dr. Almanzar is her PCP and will follow client at home. - Discharge Data Discharge Date: 03/20/19 Discharge Disposition: Home, W Home Health Agency 06 Condition: Good - Patient Summary/Data Consults: Consultations 03/19/19 16:20 PT Evaluation and Treatment [CONS] Routine - Patient Instructions Diet: Heart Healthy Diet Notify Provider of: Fever, Increased Pain, Swelling and Redness, Nausea and/or Vomiting Other/Special Instructions: Needs Home Health - Discharge Plan *PRESCRIPTION DRUG MONITORING PROGRAM REVIEWED*: Not Applicable *COPY OF PRESCRIPTION DRUG MONITORING REPORT IN PATIENT DERECK: Not Applicable Prescriptions/Med Rec: Nitrofurantoin Monohyd/M-Cryst [Macrobid 100 mg Capsule] 100 mg PO BID 5 Days # 10 capsule Home Medications: Home Meds Multivitamin [Multivitamins] 1 tab PO DAILY 01/09/18 [History] traMADol [Ultram] 50 mg PO Q6H PRN 01/09/18 [History] Warfarin [Coumadin] 1 mg PO SUTUTHSA@1400 03/19/19 [History] Warfarin [Coumadin] 2 mg PO MOWEFR@1400 03/19/19 [History] ALPRAZolam [Alprazolam] 1 mg PO BEDTIME 03/20/19 [History] Nitrofurantoin Monohyd/M-Cryst [Macrobid 100 mg Capsule] 100 mg PO BID 5 Days # 10 capsule 03/20/19 [Rx] Patient Handouts: Nitrofurantoin tablets or capsules, Syncope, [id number] Referrals: Sadi Almanzar MD [Primary Care Provider] - 04/06/19 10:00 am - Discharge Summary/Plan Comment DC Time >30 min.: No - Patient Data Vitals - Most Recent: Last Vital Signs Temp 36.3 C 03/20/19 08:00 Pulse 97 03/20/19 08:00 Resp 18 03/20/19 08:00 BP 134/63 03/20/19 08:00 Pulse Ox 94 L 03/20/19 08:00 Weight - Most Recent: 56.291 kg I&O - Last 24 hours: Intake & Output 03/19/19 03/20/19 03/20/19 22:59 06:59 14:59 Intake Total 50 270 Output Total 600 Balance 50 -330 Lab Results - Last 24 hrs: Laboratory Results - last 24 hr 03/19/19 03/19/19 03/19/19 Range/Units 12:17 12:17 12:17 WBC 8.33 (4.0-11.0) K/uL RBC 4.26 L (4.30-5.90) M/uL Hgb 12.1 (12.0-16.0) g/dL Hct 39.7 (36.0-46.0) % MCV 93.2 (80.0-98.0) fL MCH 28.4 (27.0-32.0) pg MCHC 30.5 L (31.0-37.0) g/dL RDW Std Deviation 55.4 (28.0-62.0) fl RDW Coeff of [place] 16 H (11.0-15.0) % Plt Count 292 (150-400) K/uL MPV 10.50 (7.40-12.00) fL Neut % (Auto) 74.0 (48.0-80.0) % Lymph % (Auto) 15.8 L (16.0-40.0) % [place] % (Auto) 9.4 (0.0-15.0) % Eos % (Auto) 0.7 (0.0-7.0) % Baso % (Auto) 0.1 (0.0-1.5) % Neut # (Auto) 6.2 H (1.4-5.7) K/uL Lymph # (Auto) 1.3 (0.6-2.4) K/uL [place] # (Auto) 0.8 (0.0-0.8) K/uL Eos # (Auto) 0.1 (0.0-0.7) K/uL Baso # (Auto) 0.0 (0.0-0.1) K/uL Nucleated RBC % 0.0 /100WBC Nucleated RBCs # 0 K/uL INR 2.57 Sodium 142 (136-145) mmol/L Potassium 3.8 (3.5-5.1) mmol/L Chloride 106 (98-107) mmol/L Carbon Dioxide 29.0 (21.0-32.0) mmol/L BUN 10 (7.0-18.0) mg/dL Creatinine 0.6 (0.6-1.0) mg/dL Est Cr Clr Drug Dosing 45.66 mL/min Estimated GFR (MDRD) > 60.0 ml/min Glucose 145 H (74-106) mg/dL Calcium 8.5 (8.5-10.1) mg/dL Total Bilirubin 0.3 (0.2-1.0) mg/dL AST 23 (15-37) IU/L ALT 30 (14-63) IU/L Alkaline Phosphatase 170 H (46-116) U/L Creatine Kinase 73 (26-308) U/L Troponin I < 0.050 (0.000-0.056) ng/mL Total Protein 6.4 (6.4-8.2) g/dL Albumin 2.9 L (3.4-5.0) g/dL Globulin 3.5 (2.6-4.0) g/dL Albumin/Globulin Ratio 0.8 L (0.9-1.6) TSH 3rd Generation (0.36-3.74) uIU/mL Urine Color Urine Appearance Urine pH (5.0-8.0) Ur Specific [place] (1.001-1.035) Urine Protein (NEGATIVE) mg/dL Urine Glucose (UA) (NEGATIVE) mg/dL Urine Ketones (NEGATIVE) mg/dL Urine Occult Blood (NEGATIVE) Urine Nitrite (NEGATIVE) Urine Bilirubin (NEGATIVE) Urine Urobilinogen (<2.0) EU/dL Ur Leukocyte Esterase (NEGATIVE) Urine RBC (0-2/HPF) Urine WBC (0-5/HPF) Ur Epithelial Cells (NONE-FEW) Urine Bacteria (NEGATIVE) 06/10/19 06/10/19 06/11/19 Range/Units 12:17 13:36 05:30 WBC (4.0-11.0) K/uL RBC (4.30-5.90) M/uL Hgb (12.0-16.0) g/dL Hct (36.0-46.0) % MCV (80.0-98.0) fL MCH (27.0-32.0) pg MCHC (31.0-37.0) g/dL RDW Std Deviation (28.0-62.0) fl RDW Coeff of [place] (11.0-15.0) % Plt Count (150-400) K/uL MPV (7.40-12.00) fL Neut % (Auto) (48.0-80.0) % Lymph % (Auto) (16.0-40.0) % [place] % (Auto) (0.0-15.0) % Eos % (Auto) (0.0-7.0) % Baso % (Auto) (0.0-1.5) % Neut # (Auto) (1.4-5.7) K/uL Lymph # (Auto) (0.6-2.4) K/uL [place] # (Auto) (0.0-0.8) K/uL Eos # (Auto) (0.0-0.7) K/uL Baso # (Auto) (0.0-0.1) K/uL Nucleated RBC % /100WBC Nucleated RBCs # K/uL INR 2.54 Sodium (136-145) mmol/L Potassium (3.5-5.1) mmol/L Chloride (98-107) mmol/L Carbon Dioxide (21.0-32.0) mmol/L BUN (7.0-18.0) mg/dL Creatinine (0.6-1.0) mg/dL Est Cr Clr Drug Dosing mL/min Estimated GFR (MDRD) ml/min Glucose (74-106) mg/dL Calcium (8.5-10.1) mg/dL Total Bilirubin (0.2-1.0) mg/dL AST (15-37) IU/L ALT (14-63) IU/L Alkaline Phosphatase (46-116) U/L Creatine Kinase (26-308) U/L Troponin I (0.000-0.056) ng/mL Total Protein (6.4-8.2) g/dL Albumin (3.4-5.0) g/dL Globulin (2.6-4.0) g/dL Albumin/Globulin Ratio (0.9-1.6) TSH 3rd Generation 1.27 (0.36-3.74) uIU/mL Urine Color YELLOW Urine Appearance CLEAR Urine pH 6.5 (5.0-8.0) Ur Specific [place] 1.020 (1.001-1.035) Urine Protein NEGATIVE (NEGATIVE) mg/dL Urine Glucose (UA) NEGATIVE (NEGATIVE) mg/dL Urine Ketones NEGATIVE (NEGATIVE) mg/dL Urine Occult Blood NEGATIVE (NEGATIVE) Urine Nitrite NEGATIVE (NEGATIVE) Urine Bilirubin NEGATIVE (NEGATIVE) Urine Urobilinogen 0.2 (<2.0) EU/dL Ur Leukocyte Esterase TRACE H (NEGATIVE) Urine RBC 0-2 (0-2/HPF) Urine WBC 0-2 (0-5/HPF) Ur Epithelial Cells OCCASIONAL (NONE-FEW) Urine Bacteria NOT SEEN (NEGATIVE) 03/20/19 03/20/19 Range/Units 05:30 05:30 WBC 7.74 (4.0-11.0) K/uL RBC 4.41 (4.30-5.90) M/uL Hgb 12.4 (12.0-16.0) g/dL Hct 40.7 (36.0-46.0) % MCV 92.3 (80.0-98.0) fL MCH 28.1 (27.0-32.0) pg MCHC 30.5 L (31.0-37.0) g/dL RDW Std Deviation 54.8 (28.0-62.0) fl RDW Coeff of [place] 16 H (11.0-15.0) % Plt Count 279 (150-400) K/uL MPV 10.60 (7.40-12.00) fL Neut % (Auto) (48.0-80.0) % Lymph % (Auto) (16.0-40.0) % [place] % (Auto) (0.0-15.0) % Eos % (Auto) (0.0-7.0) % Baso % (Auto) (0.0-1.5) % Neut # (Auto) (1.4-5.7) K/uL Lymph # (Auto) (0.6-2.4) K/uL [place] # (Auto) (0.0-0.8) K/uL Eos # (Auto) (0.0-0.7) K/uL Baso # (Auto) (0.0-0.1) K/uL Nucleated RBC % 0.0 /100WBC Nucleated RBCs # 0 K/uL INR Sodium 144 (136-145) mmol/L Potassium 3.8 (3.5-5.1) mmol/L Chloride 107 (98-107) mmol/L Carbon Dioxide 31.1 (21.0-32.0) mmol/L BUN 13 (7.0-18.0) mg/dL Creatinine 0.6 (0.6-1.0) mg/dL Est Cr Clr Drug Dosing 45.66 mL/min Estimated GFR (MDRD) > 60.0 ml/min Glucose 97 (74-106) mg/dL Calcium 8.6 (8.5-10.1) mg/dL Total Bilirubin (0.2-1.0) mg/dL AST (15-37) IU/L ALT (14-63) IU/L Alkaline Phosphatase (46-116) U/L Creatine Kinase (26-308) U/L Troponin I (0.000-0.056) ng/mL Total Protein (6.4-8.2) g/dL Albumin (3.4-5.0) g/dL Globulin (2.6-4.0) g/dL Albumin/Globulin Ratio (0.9-1.6) TSH 3rd Generation (0.36-3.74) uIU/mL Urine Color Urine Appearance Urine pH (5.0-8.0) Ur Specific [place] (1.001-1.035) Urine Protein (NEGATIVE) mg/dL Urine Glucose (UA) (NEGATIVE) mg/dL Urine Ketones (NEGATIVE) mg/dL Urine Occult Blood (NEGATIVE) Urine Nitrite (NEGATIVE) Urine Bilirubin (NEGATIVE) Urine Urobilinogen (<2.0) EU/dL Ur Leukocyte Esterase (NEGATIVE) Urine RBC (0-2/HPF) Urine WBC (0-5/HPF) Ur Epithelial Cells (NONE-FEW) Urine Bacteria (NEGATIVE) Med Orders - Current: Current Medications Acetaminophen (Tylenol) 650 mg PO Q4H PRN PRN Reason: Pain (Mild 1-3)/fever Last Admin: 03/19/19 22:08 Dose: 650 mg Ceftriaxone Sodium/Dextrose 2 (gm/ Premix) 50 mls @ 100 mls/hr IV Q24H [facility] Last Admin: 03/19/19 16:54 Dose: 100 mls/hr Ondansetron HCl (Zofran Odt) 4 mg PO Q4H PRN PRN Reason: nausea, able to take PO Warfarin Sodium (Coumadin Ask) 1 each PO DAILY@1400 [place] Discontinued Medications Warfarin Sodium (Coumadin) 2 mg PO DAILY@1800 ONE Stop: 03/19/19 18:01 Last Admin: 03/19/19 18:14 Dose: 2 mg <Reggie Shin - Last Filed: 03/21/19 07:50> Discharge Summary - Hospital Course HPI Initial Comments: I have seen and examined to patient independently of medical affairs director, Sylvain Lock MD. I have discussed the case for care of this patient with him. I have reviewed and approve of the plan of care as outlined by medical affairs director. Please see orders. - Patient Summary/Data Consults: Consultations 03/19/19 16:20 PT Evaluation and Treatment [CONS] Routine - Patient Data Vitals - Most Recent: Last Vital Signs Temp 36.3 C 03/20/19 08:00 Pulse 97 03/20/19 08:00 Resp 18 03/20/19 08:00 BP 134/63 03/20/19 08:00 Pulse Ox 94 L 03/20/19 08:00 MIRNA Results - Last 24 hrs: Microbiology 03/19/19 13:36 Urine Culture - Final Urine, Clean Catch MIXED CHRISTINA 10,000-100,000 CFU/ML Med Orders - Current: Current Medications Discontinued Medications Acetaminophen (Tylenol) 650 mg PO Q4H PRN PRN Reason: Pain (Mild 1-3)/fever Last Admin: 03/20/19 11:37 Dose: 650 mg Ceftriaxone Sodium/Dextrose 2 (gm/ Premix) 50 mls @ 100 mls/hr IV Q24H [place] Last Admin: 03/19/19 16:54 Dose: 100 mls/hr Ondansetron HCl (Zofran Odt) 4 mg PO Q4H PRN PRN Reason: nausea, able to take PO Warfarin Sodium (Coumadin) 2 mg PO DAILY@1800 ONE Stop: 03/19/19 18:01 Last Admin: 03/19/19 18:14 Dose: 2 mg Warfarin Sodium (Coumadin Ask) 1 each PO DAILY@1400 [place]
[2019-03-20] MEDS: Acetaminophen 325 MG Tab PO PRN (11:37)
== END 2019-03-20 12:40 | disposition home health service (06) ==
LOC: MW.ED 12:02 → MW.MS 14:10
PROVIDERS: ADMIT Internal Medicine; ATTEND Internal Medicine
DX: R26.89 Other abnormalities of gait and mobility (principal); I48.91 Unspecified atrial fibrillation; R55 Syncope and collapse; N39.0 Urinary tract infection, site not specified; I10 Essential (primary) hypertension; G47.30 Sleep apnea, unspecified; Z79.01 Long term (current) use of anticoagulants; Z79.899 Other long term (current) drug therapy; Z98.890 Other specified postprocedural states
CPT/HCPCS: 36415; 70450; 71045; 72125; 72131; 72170; 73562; 80048; 80053; 81001; 82550; 84443; 84484; 85025; 85027; 85610; 87086; 93005; 97161; 99285; A4217; A9270; J0696; 96365; 99284; G0378